=== PATIENT | female | born 1970 | race Caucasian/White ===

== ENCOUNTER 2024-06-19 21:26 | Emergency (ER) | payer BC ==
[2024-06-19 21:37] VITALS: BP 116/75; PULSE 81; RESP 18; TEMP 98.5; BMI 26.6
[2024-06-19 21:56] LABS: URINE APPEARANCE CLEAR; URINE BILIRUBIN NEGATIVE (NEGATIVE); URINE COLOR YELLOW; URINE GLUCOSE (UA) NEGATIVE (NEGATIVE); URINE KETONE TRACE (NEGATIVE); URINE LEUK ESTERASE NEGATIVE (NEGATIVE); URINE NITRITE NEGATIVE (NEGATIVE); URINE PROTEIN TRACE (NEGATIVE)
[2024-06-20] MEDS ORDERED: AZITHROMYCIN 500 MG TABLET ONE (00:11)
[2024-06-20] MEDS ORDERED: ALBUTEROL SO4 2.5/IPRATROPIUM 0.5 INH SOL 3 ML VIAL.NEB. NEB ONE (00:12)
[2024-06-20] MEDS ORDERED: predniSONE 20 MG TABLET (UD) ONE (00:12)
[2024-06-20] MEDS ORDERED: predniSONE 10 MG TABLET (UD) ONE (00:12)
[2024-06-20] MEDS ORDERED: IBUPROFEN 600 MG TABLET (FP) PO ONE (00:13)
[2024-06-20] MEDS: AZITHROMYCIN 250 MG TABLET PO ONE (00:17)
[2024-06-20] MEDS: IBUPROFEN 600 MG TABLET (FP) PO ONE (00:17)
[2024-06-20] MEDS: ALBUTEROL SO4 2.5/IPRATROPIUM 0.5 INH SOL 3 ML VIAL.NEB. NEB ONE (00:17)
[2024-06-20] MEDS: predniSONE 20 MG TABLET (UD) PO ONE (00:18)
[2024-06-20] MEDS ORDERED: predniSONE 20 MG TABLET (UD) PO SCH (10:00)
== END 2024-06-20 00:34 | disposition home or self-care (01) ==
LOC: JERFT 21:26
PROC: 3E0F7GC Introduction of Other Therapeutic Substance into Respiratory Tract, Via Natural or Artificial Opening (ICD-10-PCS; principal; 2024-06-20)
DX: R05.9 Cough, unspecified (principal); J20.9 Acute bronchitis, unspecified; Z20.822 Contact with and (suspected) exposure to COVID-19
CPT/HCPCS: 0241U-QW; 81003; 87086; 87186; 99283-25

== ENCOUNTER 2024-06-27 20:37 | Emergency (ER) | payer BC ==
[2024-06-27 20:43] VITALS: BP 115/90; PULSE 95; RESP 18; TEMP 98.1; BMI 27.4
[2024-06-27 21:16] LABS: EPI CELLS 3 /uL (0-25.1); HYALINE CASTS 0 /uL (0-3.1); PH,URINE 5.5 (5.0-8.0); URINE APPEARANCE CLOUDY; URINE BACTERIA 1028 /uL (0-1359); URINE BILIRUBIN NEGATIVE (NEGATIVE); URINE COLOR YELLOW; URINE GLUCOSE (UA) NEGATIVE (NEGATIVE); URINE KETONE NEGATIVE (NEGATIVE); URINE LEUK ESTERASE 3+ (NEGATIVE); URINE NITRITE NEGATIVE (NEGATIVE); URINE PROTEIN NEGATIVE (NEGATIVE); URINE RBC 28 /uL (0-23.9); URINE UROBILINOGEN 0.2 mg/dL (0.2-1.0); URINE WBC 1750 /uL (0-25.8)
[2024-06-27] MEDS ORDERED: guaiFENesin/D-METHORPHAN HB 10 ML UNIT-DOSE CUPS ONE (21:59)
[2024-06-27] MEDS: NITROFURANTOIN MONOHYD/M-CRYST 100 MG CAPSULE PO ONE (22:30)
[2024-06-27] MEDS: guaiFENesin/D-METHORPHAN HB 10 ML UNIT-DOSE CUPS PO ONE (22:30)
== END 2024-06-27 22:31 | disposition home or self-care (01) ==
LOC: JER 20:37
DX: N39.0 Urinary tract infection, site not specified (principal); R30.0 Dysuria; R19.7 Diarrhea, unspecified
CPT/HCPCS: 81003; 87086; 87186; 99283-25

== ENCOUNTER 2024-07-16 14:12 | Emergency (ER) | payer BC ==
[2024-07-16 14:29] VITALS: BP 106/70; PULSE 81; RESP 18; TEMP 97.8; BMI 26.6
[2024-07-16] MEDS ORDERED: ALBUTEROL SO4 2.5/IPRATROPIUM 0.5 INH SOL 3 ML VIAL.NEB. NEB ONE (15:36)
[2024-07-16] MEDS ORDERED: guaiFENesin/D-METHORPHAN HB 10 ML UNIT-DOSE CUPS ONE (15:36)
[2024-07-16 15:41] LABS: EPI CELLS 2 /uL (0-25.1); HYALINE CASTS 2 /uL (0-3.1); PH,URINE 5.5 (5.0-8.0); URINE APPEARANCE CLOUDY; URINE BACTERIA 2026 /uL (0-1359); URINE BILIRUBIN NEGATIVE (NEGATIVE); URINE COLOR YELLOW; URINE GLUCOSE (UA) NEGATIVE (NEGATIVE); URINE KETONE NEGATIVE (NEGATIVE); URINE LEUK ESTERASE 2+ (NEGATIVE); URINE NITRITE NEGATIVE (NEGATIVE); URINE PROTEIN NEGATIVE (NEGATIVE); URINE RBC 13 /uL (0-23.9); URINE UROBILINOGEN 0.2 mg/dL (0.2-1.0); URINE WBC 346 /uL (0-25.8)
[2024-07-16] MEDS: ALBUTEROL SO4 2.5/IPRATROPIUM 0.5 INH SOL 3 ML VIAL.NEB. NEB ONE (15:48)
[2024-07-16] MEDS: guaiFENesin/D-METHORPHAN HB 10 ML UNIT-DOSE CUPS PO ONE (15:48)
== END 2024-07-16 16:57 | disposition home or self-care (01) ==
LOC: JERFT 14:12
PROC: 3E0F7GC Introduction of Other Therapeutic Substance into Respiratory Tract, Via Natural or Artificial Opening (ICD-10-PCS; principal; 2024-07-16)
DX: N30.00 Acute cystitis without hematuria (principal); J40 Bronchitis, not specified as acute or chronic; R05.3 Chronic cough
CPT/HCPCS: 71046-TC-FY; 81003; 87086; 87186; 99284-25